=== PATIENT | female | born 1975 | race Caucasian/White ===

== ENCOUNTER 2019-10-06 19:07 | Emergency (ER) | payer OTHER ==
[2019-10-06 19:27] VITALS: BP 118/84; PULSE 73; TEMP 99; BMI 24.0
[2019-10-06] MEDS ORDERED: KETOROLAC TROMETHAMINE 60 MG/2 ML VIAL IM ONE (20:07)
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
[2019-10-06] MEDS ORDERED: KETOROLAC TROMETHAMINE 60 MG/2 ML VIAL ONE (20:13)
== END 2019-10-06 20:21 | disposition home or self-care (01) ==
LOC: FER 19:07
PROC: 3E0233Z Introduction of Anti-inflammatory into Muscle, Percutaneous Approach (ICD-10-PCS; principal; 2019-10-06)
DX: S16.1XXA Strain of muscle, fascia and tendon at neck level, initial encounter (principal); V43.52XA Car driver injured in collision with other type car in traffic accident, initial encounter; Y92.410 Unspecified street and highway as the place of occurrence of the external cause; S39.012A Strain of muscle, fascia and tendon of lower back, initial encounter
CPT/HCPCS: 72050-TC-FY; 72070-TC-FY; 99283-25